=== PATIENT | female | born 1995 | race Two or more races ===

== ENCOUNTER 2023-03-02 18:27 | Emergency (ER) | payer MEDICAID, OTHER ==
[~2023-03-02] VITALS: Ht 170.2 cm; Wt 53.6 kg
[2023-03-02 19:10] LABS: Basophils # (auto) 0 10 ^3/uL (0-0.2); Basophils % (auto) 0.6 % (0.0-2.0); Eosinophils # (auto) 0.1 10 ^3/uL (0-0.8); Eosinophils % (auto) 1.4 % (0.0-7.0); Hematocrit 36.8 % (36.0-46.0); Hemoglobin 11.9 g/dL (12.2-16.2); Lymphocytes # (auto) 1.8 10 ^3/uL (0.4-5.4); Lymphocytes % (auto) 31.1 % (10.0-50.0); Mean Corpuscular Hemoglobin 23.6 pg (28.0-32.0); Mean Corpuscular Hgb Conc. 32.5 g/dL (32.0-36.0); Mean Corpuscular Volume 72.8 fL (80.0-100.0); Monocytes # (auto) 0.6 10 ^3/uL (0-1.3); Monocytes % (auto) 11.1 % (0.0-12.0); Neutrophils # (auto) 3.2 10 ^3/uL (1.6-8.6); Neutrophils % (auto) 55.8 % (37.0-80.0); Nucleated Red Blood Cells % 0.2 %; Red Blood Cells 5.05 10^6/uL (4.0-5.20); Red Cell Distribution Width 17.4 % (11.8-14.3); White Blood Cell 5.8 10^3/uL (4.4-10.8)
[2023-03-02 19:12] LABS: Urine Bacteria FEW /hpf (None Seen); Urine Blood Negative /uL (Negative); Urine Clarity HAZY (Clear); Urine Color Yellow (Yellow); Urine Mucus FEW (None Seen); Urine Protein, UAD 1+ (Negative); Urine WBC 30 /hpf (0 - 5); Urine pH 5.5 (5.0-8.0)
[2023-03-02 19:22] LABS: Albumin 3.8 g/dL (3.4-5.0); Calcium 9.2 mg/dL (8.5-10.1); Potassium 4.2 mmol/L (3.5-5.1)
[2023-03-02 19:25] LABS: BUN/Creatinine Ratio 12.6 (10.0-20.0); Bilirubin, Total 0.4 mg/dL (0.2-1.0); Total Protein 7.9 g/dL (6.4-8.2)
[2023-03-02] MEDS ORDERED: MORPHINE SULFATE 4 MG/ML SYR/VIAL IM ONE (21:15)
[2023-03-02] MEDS ORDERED: ONDANSETRON ODT 4 MG TAB PO ONE (21:15)
[2023-03-02 23:43] VITALS: PULSE 72; RESP 16; O2SAT 99
[2023-03-03] MEDS ORDERED: cefTRIAXone SOD 1,000 MG VL IM ONE (01:00)
[2023-03-03] MEDS ORDERED: CEPH250C PO (01:01)
[2023-03-03] MEDS ORDERED: HYDR-4798 PO ×2 (01:47)
[2023-03-03 02:08] VITALS: BP 101/77; PULSE 67; RESP 16; TEMP 98; O2SAT 100
== END 2023-03-03 02:17 | disposition home or self-care (01) ==
LOC: ER 18:27
DX: N39.0 Urinary tract infection, site not specified (principal); K80.20 Calculus of gallbladder without cholecystitis without obstruction; K82.8 Other specified diseases of gallbladder; F17.210 Nicotine dependence, cigarettes, uncomplicated; Z32.02 Encounter for pregnancy test, result negative; Z88.2 Allergy status to sulfonamides
CPT/HCPCS: 36415; 76705; 80053; 81001; 81025; 83690; 85025; 96372; 99285; J0696; J2270; Q0162

== ENCOUNTER 2023-09-06 09:21 | Emergency (ER) | payer MEDICAID, OTHER ==
[~2023-09-06] VITALS: Ht 170.2 cm; Wt 55.0 kg
[~2023-09-06 09:21] MED LIST: CEPH250C PO
[2023-09-06 10:30] VITALS: BP 115/81; PULSE 85; RESP 16; TEMP 99.3; O2SAT 100
[2023-09-06] MEDS ORDERED: NABU-72 PO (12:39)
== END 2023-09-06 12:52 | disposition home or self-care (01) ==
LOC: ER 09:21
DX: M54.2 Cervicalgia (principal); M54.6 Pain in thoracic spine; F17.210 Nicotine dependence, cigarettes, uncomplicated; Z88.2 Allergy status to sulfonamides; V43.62XA Car passenger injured in collision with other type car in traffic accident, initial encounter; Y93.89 Activity, other specified; Y92.488 Other paved roadways as the place of occurrence of the external cause; Y99.8 Other external cause status
CPT/HCPCS: 72040; 72070